=== PATIENT | female | born 1960 | race Caucasian/White ===

== ENCOUNTER 2017-08-23 13:16 | Outpatient (CLI) | payer MEDICARE, MEDICAID ==
[2017-08-23] MEDS ORDERED: IOHEXOL 300mgI/mL 100 ML VIAL PO ONE (13:17)
--- NOTE | 2017-08-24 07:40 | Diagnostic Imaging Report ---
Head CT without intravenous contrast Indication: CVA Comparison: None Technique: Axial images were obtained from the vertex to the skull base without IV contrast. Coronal reconstructions were made. Total DLP: 618, [id number] FINDINGS: Images of the brain obtained without contrast demonstrate no evidence of an acute hemorrhage. Mild white matter disease is noted. The ventricles and basal cisterns are patent. No mass effect or midline shift. Hyperostosis is noted. No evidence of a skull fracture or focal soft tissue swelling. The visualized paranasal sinuses demonstrate mild mucosal thickening. Mild falx calcifications are noted. IMPRESSION: No evidence of an acute intracranial hemorrhage. Mild supratentorial white matter disease which is nonspecific and may be due to chronic microvessel ischemia.. Given clinical history, if indicated, follow up MRI may also be obtained for further assessment.
--- NOTE | 2017-08-24 07:58 | Diagnostic Imaging Report ---
CT Chest with IV contrast HISTORY: Weight loss COMPARISON: CT abdomen and pelvis the same day. Technique: Axial images were obtained from the base of the neck to the upper abdomen following administration of IV contrast. Coronal reconstructions were made. Total DLP to 35, CTD I 6.6 Findings: Multiple thyroid nodules are seen in the largest within the right lobe measuring 1 cm containing small calcifications. There is no evidence of mediastinal lymphadenopathy. Moderate atherosclerosis is noted including coronary artery calcifications. The ascending aorta measures up to 3.2 cm. No evidence of an aortic aneurysm. The heart size is normal. No pericardial effusion identified. There Is mild generalized prominence of the esophageal wall. Evaluation of the lungs demonstrates hypoventilatory atelectatic lung changes. No focal consolidation or effusions. No mass lesions identified. Degenerative changes of the spine are noted. Vacuum disc phenomena seen at T12/L1 with Schmorl's nodes seen along the superior endplate of L1. Spinal scoliosis is noted. IMPRESSION: Atelectatic lung changes with no focal consolidation identified. No discrete mass lesion identified. Mild generalized prominence of the esophageal wall. Inflammatory or infiltrative process cannot be excluded. Consider further assessment with endoscopy. No evidence of mediastinal lymphadenopathy. Multiple thyroid nodules. Recommend further assessment with ultrasound. Moderate atherosclerosis in including coronary artery calcifications.
--- NOTE | 2017-08-24 08:05 | Diagnostic Imaging Report ---
CT abdomen and pelvis with intravenous contrast Indication: Abdominal pain, weight loss Comparison: CT chest the same day, Technique: Axial images were obtained from the lung bases to the bilateral proximal femurs without IV contrast. Coronal reconstructions were made. total DLP: 464, CTDI9.3 FINDINGS: No evidence of focal hepatic lesions. A large gallstone is noted measuring 1.7 cm. No evidence of focal splenic or pancreatic lesions. No focal adrenal lesions. No evidence of hydronephrosis or focal renal lesions. There is distal fecal impaction. Copious stool is seen throughout the colon with gas-filled loops of bowel. The appendix is unremarkable. Nonspecific fluid-filled loops of small bowel are noted. There is mild heterogeneous enhancement of the uterus. There is urinary bladder wall thickening. Mild atherosclerotic vascular disease noted. No free fluid or free air. The advanced degenerative changes spine are noted. There is mild prominence soft tissue density the perineal fat planes. There is no evidence of mesenteric or retroperitoneal lymphadenopathy. IMPRESSION: Copious stool throughout the colon with distal fecal impaction generalized gas-filled bowel. Please clinically clinical possible constipation and mild ileus. Urinary bladder wall thickening. Underlying inflammatory or infiltrative process cannot be excluded. Mild prominence of soft tissue density the perineal fat planes. The significance of this finding should be correlated with clinical examination. Cholelithiasis. Heterogeneous enhancement of the uterus. No discrete fibroids identified. If indicated ultrasound follow-up may be obtained. Mild atherosclerotic vascular disease.
== END 2017-08-23 16:12 | disposition home or self-care (01) ==
LOC: RAD 13:16
DX: G93.89 Other specified disorders of brain (principal); J98.11 Atelectasis; E04.2 Nontoxic multinodular goiter; I25.10 Atherosclerotic heart disease of native coronary artery without angina pectoris; K80.20 Calculus of gallbladder without cholecystitis without obstruction; I70.8 Atherosclerosis of other arteries
CPT/HCPCS: 70450-TC; 71260-TC; Q9967

== ENCOUNTER 2017-09-15 11:37 | Outpatient (CLI) | payer MEDICARE, OTHER, MEDICAID ==
--- NOTE | 2017-09-15 14:44 | Diagnostic Imaging Report ---
Breast ultrasound History: Screening Comparison: None Technique/procedure: Sonography of the bilateral breasts was performed in multiple planes. Findings: Exam is limited due to body habitus. Exam of the right side demonstrates glandular and fatty breast tissue with no discrete focal lesions identified. Exam of the left side demonstrates glandular and fatty breast tissue with no discrete focal lesions identified. IMPRESSION: Limited exam due to body habitus. No discrete focal lesions by ultrasound, however, further assessment with mammography is also recommended. BI-RADS 0, mammography is recommended for further assessment. Note, that a suspicious breast abnormality should not preclude sonographic findings.
--- NOTE | 2017-09-15 14:55 | Diagnostic Imaging Report ---
Ultrasound urinary bladder History: Hematuria, thickened urinary bladder wall Comparison: CT abdomen and pelvis on 08/23/2017 Technique: Sonography of the pelvis was performed in multiple planes. The prevoid bladder volume is 108 mL's. The posterior bladder wall in this 57 mL. Borderline prominent urinary bladder wall is noted measuring 3 mm. IMPRESSION: Slightly elevated postvoid residual bladder volume of 57 mL's. Borderline prominent urinary bladder wall measuring 3 mm. Inflammatory process cannot be excluded.
--- NOTE | 2017-09-15 15:00 | Diagnostic Imaging Report ---
Thyroid ultrasound HISTORY: Weight loss, hyponatremia COMPARISON: None Technique: Sonography of the thyroid gland was performed in multiple planes. FINDINGS: The right lobe of the thyroid gland measures 4.6 x 1.9 x 2.1 cm cm and demonstrates a heterogeneous echotexture. A dominant echogenic nodule is seen within the mid to upper pole measuring 1.6 x 1.8 cm. Additional adjacent isoechoic nodule is noted measuring 1.6 x 1.4 cm. The left lobe of the thyroid gland measures 3.6 x 1.4 x 2.3 cm and and demonstrates a heterogeneous echotexture. There is an primarily hypoechoic nodule seen within the mid pole measuring 0.7 x 0.4 cm. An additional slightly hypoechoic nodule is seen along the lateral aspect of the mid to lower pole measuring 0.8 x 0.5 cm. The thyroid isthmus measures 3 mm. IMPRESSION: Multinodular and heterogeneous thyroid gland with dominant nodules within the right lobe. Correlation with clinical history correlation with old exams would be helpful. FNA of the dominant nodules of the right lobe should be considered. Additional subcentimeter left thyroid nodules. Short-term follow-up surveillance ultrasound in 4-6 months is also recommended. Note that the histology of thyroid nodules cannot be determined sonographically.
== END 2017-09-15 13:26 ==
LOC: RAD 11:37
DX: Z00.01 Encounter for general adult medical examination with abnormal findings (principal); E04.2 Nontoxic multinodular goiter; R31.9 Hematuria, unspecified; E87.1 Hypo-osmolality and hyponatremia; R63.4 Abnormal weight loss
CPT/HCPCS: 76536-TC; 76641; 76857-TC